=== PATIENT | male | born 1945 | race African-American/Black ===

== ENCOUNTER 2024-04-13 11:31 | Emergency (ER) | payer MEDICARE, OTHER ==
[~2024-04-13] VITALS: Ht 193 cm; Wt 122.7 kg
[2024-04-13 11:45] VITALS: TEMP 98
[2024-04-13] MEDS ORDERED: Ondansetron 4 MG/2 ML VIAL IV ONE (13:00)
[2024-04-13] MEDS ORDERED: NS 1,000 ML IV ONE (13:00)
[2024-04-13 13:14] LABS: BASO % 0.2 % (0.0-2.0); EOS % 0.2 % (0.0-4.0); GRAN # 3.8 K/mm3 (1.4-6.5); GRAN % 75.8 % (42.2-75.2); HEMATOCRIT 47.3 % (42.0-52.0); HEMOGLOBIN 15.7 g/dl (13.5-18.0); LYMPH # 0.7 K/mm3 (1.2-3.4); MEAN CELL VOLUME 87 fl (80.0-100.0); MEAN CORPUSCULAR HEMOGLOBIN 29 pg (27-31); MEAN CORPUSCULAR HGB CONC 33 g/dl (33.0-37.0); MONO # 0.5 K/mm3 (0.1-0.6); MONO % 10.4 % (1.7-9.3); PLATELET COUNT 259 K/mm3 (130-400); RED BLOOD COUNT 5.45 M/mm3 (4.20-5.60); REDCELL DISTRIBUTION WIDTH-CV 14.1 % (11.5-14.5)
[2024-04-13 13:27] LABS: ALBUMIN 4.2 g/dL (3.4-4.8); BILIRUBIN,TOTAL 1.1 mg/dL (0.2-1.2); CALCIUM 9.4 mg/dL (8.4-10.2); POTASSIUM 4.2 mEq/L (3.5-4.5); TOTAL PROTEIN 7.5 g/dl (6.2-8.1)
[2024-04-13] MEDS ORDERED: ZOFRAN ODT4 MG PO (13:52)
[2024-04-13 14:00] VITALS: BP 120/76; PULSE 78
== END 2024-04-13 14:00 | disposition home or self-care (01) ==
LOC: COL.ER 11:31
PROVIDERS: Physician Assistant
DX: R11.2 Nausea with vomiting, unspecified (principal); E11.22 Type 2 diabetes mellitus with diabetic chronic kidney disease; N18.9 Chronic kidney disease, unspecified
CPT/HCPCS: J2405; J7030